=== PATIENT | male | born 1980 ===

== ENCOUNTER 2018-01-31 01:50 | Emergency (ER) | payer BC ==
[2018-01-31] MEDS ORDERED: predniSONE TAB* 20 MG PO ONE (02:33)
[2018-01-31] MEDS ORDERED: Ibuprofen TAB* 800 MG PO ONE (02:33)
--- NOTE | 2018-01-31 02:46 | ED ---
Allergic Reaction/Systemic - HPI Summary HPI Summary: This is scribe Pancho Rosa documenting for attending Reema Mackenzie MD. Patient is a 37 y/o M w/ c/o allergic reaction to wasp sting at RLQ of abdomen onsetting at around 1999 today. Mild edema and erythema is noted by patient at site. Area is not reported to be pruritic. On triage, it is reported that patient notes right lower lip edema and feels that his neck is beginning to swell. SOB is denied. Patient took 2 Benadryl prior to arrival. On triage, pain is denied and nothing is noted to aggravate/alleviate Sx. Home medications and allergies are reviewed. I, Dr. Mackenzie, personally performed the services described in this documentation as scribed in my presence and it is both accurate and complete. - History of Current Complaint Chief Complaint: EDAllergicReaction Time Seen by Provider: 01/31/18 02:03 Hx Obtained From: Patient Onset/Duration: Started hours ago - onset 1999 Timing: Lasting Hours - onset 1999 Severity Currently: None - pain is denied Pain Intensity: 0 Location: Discrete @ - RLQ was location of sting Character: Swelling Aggravating Factor(s): Nothing Alleviating Factor(s): Nothing Associated Signs And Symptoms: Positive: Other: - NEGATIVE: pain. Negative: Difficulty Breathing - Related Hx Possible Reaction To: Animal - wasp - Allergies/Home Medications Allergies/Adverse Reactions: Allergies Allergy/AdvReac Type Severity Reaction Status Date / Time No Known Allergies Allergy Verified 09/18/13 10:13 PMH/Surg Hx/FS Hx/Imm Hx Endocrine/Hematology History: Denies: Hx Diabetes, Hx Thyroid Disease Cardiovascular History: Denies: Hx Hypertension Respiratory History: Denies: Hx Asthma, Hx Chronic Obstructive Pulmonary Disease (COPD) GI History: Denies: Hx Ulcer - Surgical History Surgery Procedure, Year, and Place: appy, lt knee surgery Infectious Disease History: No Infectious Disease History: Reports: Traveled Outside the [place] in Last 30 Days - [place] Denies: Hx Hepatitis, Hx Human Immunodeficiency Virus (HIV) - Family History Known Family History: Negative: Blood Disorder - Social History Alcohol Use: None Substance Use Type: Reports: None Review of Systems Negative: Shortness Of Breath Positive: Edema - right lower lip; feeling that neck is beginning to swell Positive: Other - POSITIVE: wasp sting at RLQ of abdomen; area is red and swollen NEGATIVE: itchiness at area of sting All Other Systems Reviewed And Are Negative: Yes Physical Exam - Summary Physical Exam Summary: VITAL SIGNS: Reviewed. GENERAL: Patient is a well-developed and nourished male who is lying comfortable in the stretcher. Patient is not in any acute respiratory distress. HEAD AND FACE: No signs of trauma. No ecchymosis, hematomas or skull depressions. No sinus tenderness. EYES: PERRLA, EOMI x 2, No injected conjunctiva, no nystagmus. EARS: Hearing grossly intact. Ear canals and tympanic membranes are within normal limits. MOUTH: Oropharynx within normal limits. NECK: Supple, trachea is midline, no adenopathy, no JVD, no carotid bruit, no c- spine tenderness, neck with full ROM. CHEST: Symmetric, no tenderness at palpation LUNGS: Clear to auscultation bilaterally. No wheezing or crackles. CVS: Regular rate and rhythm, S1 and S2 present, no murmurs or gallops appreciated. ABDOMEN: Soft, non-tender. No signs of distention. No rebound no guarding, and no masses palpated. Bowel sounds are normal. EXTREMITIES: FROM in all major joints, no edema, no cyanosis or clubbing. NEURO: Alert and oriented x 3. No acute neurological deficits. Speech is normal and follows commands. SKIN: Dry and warm; At RLQ of abdomen, small 1.5 x 1 inch raised area. Some rash is noted at area as well. Triage Information Reviewed: Yes Vital Signs On Initial Exam: Initial Vitals Temp Pulse Resp BP Pulse Ox 97.7 F 56 18 122/74 97 01/31/18 01:53 01/31/18 01:53 01/31/18 01:53 01/31/18 01:53 01/31/18 01:53 Vital Signs Reviewed: Yes Diagnostics - Vital Signs Vital Signs Temp Pulse Resp BP Pulse Ox 01/31/18 01:53 97.7 F 56 18 122/74 97 - Laboratory Lab Statement: Any lab studies that have been ordered have been reviewed, and results considered in the medical decision making process. Re-Evaluation - Re-Evaluation First Eval Re-Evaluation Time: 02:40 Change: Improved Comment: Patient reports feeling better. He will be discharged to home and follow up with PCP in 1-2 days. Patient is agreeable with plan. Allergic Reaction Course/Dx - Course Assessment/Plan: Patient is a 37 y/o M w/ c/o allergic reaction to wasp sting at RLQ of abdomen onsetting at around 2000 today. Mild edema and erythema is noted at site. Area is not reported to be pruritic. On triage, it is reported that patient notes right lower lip edema and feels that his neck is beginning to swell. SOB is denied. Patient took 2 Benadryl prior to arrival. On triage, pain is denied and nothing is noted to aggravate/alleviate Sx. Physical exam revealed at RLQ of abdomen, small 1.5 x 1 inch raised area. Some rash is noted at area as well. No other abnormal findings. During ED course, patient was given ibuprofen 800 mg PO ONCE and Prednisone 60 mg PO ONCE. At 0240, patient reports feeling better. He will be discharged to home and follow up with PCP in 1-2 days. Patient is agreeable with plan. Ibuprofen TAB* [Motrin TAB* 800 MG] 800 mg PO Q6H PRN #30 tab and predniSONE TAB* [Deltasone 20 MG TAB*] 40 mg PO DAILY #10 tab was prescribed. Patient was discharged to home with diagnosis of wasp sting. Patient will follow up with PCP in 1-2 days. He is agreeable with plan and had all questions answered to satisfaction. - Diagnoses Provider Diagnoses: Wasp sting Discharge - Sign-Out/Discharge Documenting (check all that apply): Patient Departure - discharge - Discharge Plan Condition: Stable Disposition: HOME Prescriptions: Ibuprofen TAB* [Motrin TAB* 800 MG] 800 mg PO Q6H PRN #30 tab PRN Reason: Pain predniSONE TAB* [Deltasone 20 MG TAB*] 40 mg PO DAILY #10 tab Patient Education Materials: Insect Bite or Sting (ED) Referrals: Care [facility] [Outside] - 2 Days Additional Instructions: Return to ED for any changing or worsening symptoms. Follow up with primary care physician in 1-2 days.
[2018-01-31 03:46] VITALS: BP 118/75
== END 2018-01-31 03:10 | disposition home or self-care (01) ==
LOC: ED 01:50
DX: T63.461A Toxic effect of venom of wasps, accidental (unintentional), initial encounter (principal); Y92.9 Unspecified place or not applicable
CPT/HCPCS: 99282; A9270-GY; J7512